=== PATIENT | female | born 1995 | race Two or more races ===

== ENCOUNTER → 2025-06-20 | Outpatient (CLI) | payer MEDICAID, SELFPAY ==
--- NOTE | 2025-06-20 16:16 | XR_ITS ---
Examination: CT pelvis without intravenous contrast. 2-D sagittal and coronal reconstructions. Date and time of exam: June 20, 2025, 1714 hours INDICATIONS: Pelvic and perineal pain beginning 1 year ago CTDI: vol (mGy) : 20.9 DLP: (mGycm) : 693 Technique: Multiple 3 mm axial sections of the pelvis have been obtained with the 64 slice high resolution scanner. 2-D sagittal and coronal reconstructions. Low dose protocols were performed. One or more of the following dose reduction techniques were used; automated exposure control, adjustment of the mA and/or KV according to patient size, use of iterative reconstruction technique. Findings: No uterine mass or adnexal mass No free fluid in the pelvis No common iliac or external iliac or common femoral lymphadenopathy No bowel obstruction Small soft tissue mass in the left groin, 23 mm, axial image 51 The osseous structures are intact IMPRESSION: Soft tissue mass indistinct margins left groin, 23 mm Recommend pelvic sonography and ultrasound soft tissue left groin follow-up
[2025-06-20 16:30] LABS: HCG Qualitative,Urine Negative
== END | disposition home or self-care (01) ==
LOC: CCTX 15:54 → COPL 15:59
PROVIDERS: Registered Nurse Pediatrics; Referring Provider Radiology Diagnostic Radiology; Visit Provider Radiology Diagnostic Radiology
DX: R19.09 Other intra-abdominal and pelvic swelling, mass and lump (principal); Z32.00 Encounter for pregnancy test, result unknown
CPT/HCPCS: 72192; 81025

== ENCOUNTER 2025-07-01 12:09 | Emergency (ER) | payer MEDICAID, SELFPAY ==
[2025-07-01 12:10] VITALS: BMI 53.8
[2025-07-01 12:36] VITALS: BP 146/72; PULSE 77; RESP 18; TEMP 37.1; O2SAT 96
--- NOTE | 2025-07-01 12:39 | XR_ITS ---
Examination: CT pre and post contrast follow-up would confirm this diagnosis, with intravenous contrast. 2-D coronal reconstructions. 2-D sagittal reconstructions. Date and time of exam : July 01 0 25, 1919 hours INDICATION: Right-sided Beginning 5 days ago, thyroid cancer history COMPARISON: June 29, 2023. CTDI: vol (mGy): 20.3 DLP: (mGycm): 557 Technique: 1.25 mm axial sections of the neck of the obtained. Coronal and sagittal reconstructions have been obtained. Intravenous contrast administered 50 cc Isovue-370. Low dose protocols were performed. One or more of the following dose reduction techniques were used; automated exposure control, adjustment of the mA and/or KV according to patient size, use of iterative reconstruction technique. Findings: Maxillary antra demonstrate 8 mm retention cyst on the right Symmetrical nasopharynx oropharynx The right submandibular gland has been removed The larynx appears normal No soft tissue mass in the thyroid bed The epiglottis is poorly visualized No prevertebral soft tissue prominence The right parotid gland is enlarged with inflammatory change IMPRESSION: Findings most consistent with acute right parotitis MRI soft tissue neck follow-up pre and post contrast would confirm this diagnosis
--- NOTE | 2025-07-01 12:40 | PD.EDRME ---
Rapid Medical Screening Exam RME Arrival date/time: 07/01/25 12:09 30-year-old female with a history of thyroid cancer presents to the emergency room with a chief complaint of swelling and tenderness to the right side of her neck x 2 days I have greeted and performed a focused initial assessment of this patient. A comprehensive ED assessment and evaluation of the patient, analysis of all test results, and completion of the medical decision making process will be conducted by additional ED providers. Chief Complaint: Skin/Abscess/Foreign Body Time Seen by Provider: 07/01/25 12:24 Vital signs: Vital Signs Temperature 98.7 F 07/01/25 12:36 Pulse Rate 77 07/01/25 12:36 Respiratory Rate 18 07/01/25 12:36 Blood Pressure 146/72 H 07/01/25 12:36 Pulse Oximetry (%) 96 07/01/25 12:36 Oxygen Delivery Method Room Air 07/01/25 12:36 Vital signs reviewed by provider: Yes
[2025-07-01 14:01] LABS: Basophils # (Auto) 0.1 Thou/mm3 (0.0-0.2); Basophils % (Auto) 1 % (0-2.5); Eosinophils # (Auto) 0.4 Thou/mm3 (0.0-0.5); Eosinophils % (Auto) 4 % (0-10); Hematocrit 39.7 % (36.0-46.0); Hemoglobin 12.8 g/dL (12.0-16.0); Immature Granulocytes Auto 0.04 Thou/mm3 (0.00-0.00); Lymphocytes # (Auto) 1.7 Thou/mm3 (1.0-4.8); Lymphocytes % (Auto) 15 % (10-50); Mean Corpuscular HGB Conc 32.2 g/dl (31.0-37.0); Mean Corpuscular Hemoglobin 26.8 pg (25.0-35.0); Mean Corpuscular Volume 83 fL (80-100); Monocytes # (Auto) 0.7 Thou/mm3 (0.0-0.8); Monocytes % (Auto) 7 % (0-12); Neutrophils # (Auto) 8.1 Thou/mm3 (1.8-7.7); Neutrophils % (Auto) 73 % (37-80); Nucleated Red Blood Cell # 0.00 Thou/mm3 (0.00-0.00); Nucleated Red Blood Cell % 0 /100 WBC (0); Platelet Count 284 Thou/mm3 (140-440); RDW Standard Deviation 45.3 fL (36.4-46.3); Red Blood Count 4.77 Miln/mm3 (4.00-5.20); White Blood Count 11.1 Thou/mm3 (3.6-11.0)
[2025-07-01 14:19] LABS: Alanine Aminotransferase 22 U/L (10-49); Albumin, Serum 4.6 gm/dL (3.5-5.0); Albumin/Globulin Ratio 1.8 (1.2-2.2); Alkaline Phosphatase 78 U/L (46-116); Anion Gap 9 (7-16); Aspartate Amino Transferase 18 U/L (0-34); BUN/Creatinine Ratio 13 Ratio (12-20); Bilirubin,Total 0.4 mg/dL (0.3-1.2); Blood Urea Nitrogen 8 mg/dL (9-23); Calcium 9.1 mg/dL (8.3-10.6); Calcium (Corrected) 9.1 mg/dL (8.5-10.1); Carbon Dioxide 26.1 mMol/L (20.0-31.0); Chloride 107 mMol/L (98-107); Creatinine (Component) 0.6 mg/dL (0.6-1.3); Estimated Creatinine Clearance 187.4 mL/min (>60); Globulin 2.5 gm/dL (2.3-3.5); Glucose 93 mg/dL (74-106); Lipase 29 U/L (12-53); Osmolality,Calculated 281 (275-295); Potassium 3.9 mMol/L (3.4-5.1); Sodium 142 mMol/L (136-145); Total Protein 7.1 gm/dL (5.7-8.2); eGFR > 60 See Note
[2025-07-01 14:27] LABS: Collection Type, Urine Clean Catch
--- NOTE | 2025-07-01 14:33 | EDNOTE_ITS ---
ED General RME/HPI General Chief complaint: Skin/Abscess/Foreign Body Stated complaint: SWELLING TO RT SIDE OF FACE HX OF CA Time Seen by Provider: 07/01/25 12:24 Arrival date/time: 07/01/25 12:09 RME / HPI RME / HPI narrative: 07/01/25 12:09 30-year-old female with a history of thyroid cancer presents to the emergency room with a chief complaint of swelling and tenderness to the right side of her neck x 2 days I have greeted and performed a focused initial assessment of this patient. A comprehensive ED assessment and evaluation of the patient, analysis of all test results, and completion of the medical decision making process will be conducted by additional ED providers. DR. VARGAS MAIN ED EVALUATION 30 year old female with history of thyroid carcinoma s/p bilateral neck dissection ~ 1 year ago presents to the ED for evaluation of right sided neck swelling beginning 4 days ago. Denies any associated pain, difficulty or painful swallowing, dental pain, ear pain, or recent illness. Denies fevers, chills, sweats, cough. Related Data Previous Rx's ?Medication ?Instructions ?Recorded ibuprofen 800 mg tablet 800 mg PO Q8H PRN pain #30 t abs 07/01/25 Allergies Allergy/AdvReac Type Severity Reaction Status Date / Time No Known Allergies Allergy Verified 07/01/25 12:13 Review of Systems Review of Systems Systems Reviewed: All systems reviewed, normal except as documented Past Medical History Past Medical History CARDIAC: Negative Cardiac Disorders RESPIRATORY: Negative Asthma GENITOURINARY: Negative Renal Disease ENDOCRINE: Negative Diabetes Mellitus Type 2 HEMATOLOGIC: Negative Sickle Cell Disease Social History SMOKING STATUS: Never smoker ED Exam Narrative Physical exam: GENERAL APPEARANCE:? alert and oriented x 4, well-developed, well-nourished, no acute distress HEENT: normocephalic, atraumatic NECK: supple, mild edema to the right mandible area, no lymph nodes, no tenderness to palpation, no erythema, FROM LUNGS: no respiratory distress, normal effort HEART: good peripheral perfusion ABDOMEN: non distended EXTREMITIES:? atraumatic NEUROLOGIC: awake; alert and oriented x4; cranial nerves II-XII grossly intact PSYCHIATRIC:? appropriate mood and affect SKIN: warm, dry, normal color; no rashes Course Course Course Narrative: 1800: Patient signed out to Dr. West pending CT soft tissue neck w con. Quality Measures none Orders Category Date Time Status CT Screening NOW Care 07/01/25 12:[address] soft tissue neck w con Stat Exams 07/01/25 12:39 Completed CBC Stat Lab 07/01/25 13:50 Completed CMP [Comprehensive Metabolic Panel] Stat Lab 07/01/25 13:50 Completed HCG Qualitative,Urine Stat Lab 07/01/25 14:06 Completed Lipase Stat Lab 07/01/25 13:50 Completed UA [Urinalysis] Stat Lab 07/01/25 14:06 Completed Urine Culture Stat Lab 07/01/25 14:06 Completed Vital Signs Vital signs: Vital Signs Temperature 98.7 F 07/01/25 12:36 Pulse Rate 77 07/01/25 12:36 Respiratory Rate 18 07/01/25 12:36 Blood Pressure 146/72 H 07/01/25 12:36 Pulse Oximetry (%) 96 07/01/25 12:36 Oxygen Delivery Method Room Air 07/01/25 12:36 Pulse ox is 96% on room air which is adequate. Discharge Plan Plan Patient Disposition: HOME (Self Care) Prescriptions/Referrals Prescriptions/Med Rec: New ibuprofen 800 mg tablet 800 mg PO Q8H PRN (Reason: pain) Qty: 30 0RF Referrals: Gualberto Lezama MD [Primary Care Provider, Family Practice] - In 1 week Problem List Clinical Impression: Acute parotitis Patient/Caregiver Discharge Instructions Education Materials: ED Salivary Gland Infection Additional Instructions: Apply warm compresses 3 times a day for 20 to 30 minutes at a time over the swollen area. Medications as prescribed. Follow-up with your doctor for further treatment and evaluation. Print Language: Polish Stand Alone Forms: [facility]ylee Award Info., Patient Portal Info Letter MDM Narrative Sign Out note: 1800: Patient signed out to Dr. West pending CT soft tissue neck w con. [facility] hospital course (for use when minimal MDM required): Lianne Epstein am scribing for and in the presence of Dr. Vargas. Clinical Information Provided by: patient Medical Records reviewed [facility] Meds/Rx considered, not ordered None Labs/Rad/Tests considered, not ordered None Chronic Illness/Social Conditions which may negatively complicate care or outcome(s)-explain: Cancer (hx of thyroid cancer ) Labs Labs: interpreted by ms Lab(s) Interpretation(s): CBC within normal limits CMP within normal limits Imaging Imaging interpretation: none Medication Administration(s) none Diagnosis Diagnoses ruled out and/or further discussions: Neck/facial swelling
[2025-07-01 15:12] LABS: HCG Qualitative,Urine Negative
[2025-07-01 15:26] LABS: Bilirubin,Urine Negative (Negative); Blood,Urine Trace (Negative); Clarity,Urine Clear (Clear/Hazy); Color,Urine Lt-Yellow (Lt Yel-Yel); Glucose, Urine Negative (Negative); Hyaline Casts,Urine < 1 /hpf (0-1); Ketones,Urine Negative (Negative); Leukocyte Esterase,Urine Negative (Negative); Nitrite,Urine Negative (Negative); PH,Urine 7.0 (5.0-7.0); Protein,Urine Negative (Neg - Trace); RBC,Urine 8 /hpf (0-3); Specific Gravity,Urine 1.022 (1.001-1.035); Squamous Epithelial Cell,Urine 3 /hpf (0-5); Urobilinogen,Urine Negative mg/dL (0.0-1.0); WBC,Urine 1 /hpf (0-5)
--- NOTE | 2025-07-01 18:18 | EDNOTE_ITS ---
Emergency Room Addendum <Eli Lezama - Last Filed: 07/01/25 20:30> Addendum Narrative: 1800: Care assumed from Dr. Vargas, the previous shift emergency physician. Past medical, surgical, social and family history reviewed. Vitals and home medications reviewed. Results and treatment plan discussed. I will assume the care of the patient at this time and will follow the patient, pending CT soft tissue neck. Please refer to the emergency department record for history and examination from initial visit. RADIOLOGY RESULTS: [facility] Report Signed Patient: JACKIE HERNANDEZ. Record#: [id number] Birthdate: 1995 Age/Sex: 30 / F Location: [facility] Attending Dr: Ordering Physician: Refugio Gallego Date of Service: 07/01/25 Procedure(s): CT soft tissue neck w con Accession Number(s): [id number] cc: Refugio Gallego; Gualberto Lezama MD; Delgado Starr MD~ Examination: CT pre and post contrast follow-up would confirm this diagnosis, with intravenous contrast. 2-D coronal reconstructions. 2-D sagittal reconstructions. Date and time of exam : July 01 25, 1919 hours INDICATION: Right-sided Beginning 5 days ago, thyroid cancer history COMPARISON: June 29, 2023. CTDI: vol (mGy): 20.3 DLP: (mGycm): 557 Technique: 1.25 mm axial sections of the neck of the obtained. Coronal and sagittal reconstructions have been obtained. Intravenous contrast administered 50 cc Isovue-370. Low dose protocols were performed. One or more of the following dose reduction techniques were used; automated exposure control, adjustment of the mA and/or KV according to patient size, use of iterative reconstruction technique. Findings: Maxillary antra demonstrate 8 mm retention cyst on the right Symmetrical nasopharynx oropharynx The right submandibular gland has been removed The larynx appears normal No soft tissue mass in the thyroid bed The epiglottis is poorly visualized No prevertebral soft tissue prominence The right parotid gland is enlarged with inflammatory change IMPRESSION: Findings most consistent with acute right parotitis MRI soft tissue neck follow-up pre and post contrast would confirm this diagnosis Dictated By: Delgado Starr MD Signed By: <Electronically signed by Delgado Starr MD in [place]> 07/01/252021 <Sai West, - Last Filed: 07/01/25 21:02> Addendum Narrative: 1800: Care assumed from Dr. Vargas, the previous shift emergency physician. Past medical, surgical, social and family history reviewed. Vitals and home medications reviewed. Results and treatment plan discussed. I will assume the care of the patient at this time and will follow the patient, pending CT soft tissue neck. Please refer to the emergency department record for history and examination from initial visit. RADIOLOGY RESULTS: [facility] Report Signed Patient: JACKIE HERNANDEZ [facility]. Record#: [id number] Birthdate: 1995 Age/Sex: 30 / F Location: [facility] Attending Dr: Ordering Physician: Refugio Gallego Date of Service: 07/01/25 Procedure(s): CT soft tissue neck w con Accession Number(s): [id number] cc: Refugio Gallego; Gualberto Lezama MD; Delgado Starr MD~ Examination: CT pre and post contrast follow-up would confirm this diagnosis, with intravenous contrast. 2-D coronal reconstructions. 2-D sagittal reconstructions. Date and time of exam : July 01, 1919 hours INDICATION: Right-sided Beginning 5 days ago, thyroid cancer history COMPARISON: June 29, 2023. CTDI: vol (mGy): 20.3 DLP: (mGycm): 557 Technique: 1.25 mm axial sections of the neck of the obtained. Coronal and sagittal reconstructions have been obtained. Intravenous contrast administered 50 cc Isovue-370. Low dose protocols were performed. One or more of the following dose reduction techniques were used; automated exposure control, adjustment of the mA and/or KV according to patient size, use of iterative reconstruction technique. Findings: Maxillary antra demonstrate 8 mm retention cyst on the right Symmetrical nasopharynx oropharynx The right submandibular gland has been removed The larynx appears normal No soft tissue mass in the thyroid bed The epiglottis is poorly visualized No prevertebral soft tissue prominence The right parotid gland is enlarged with inflammatory change IMPRESSION: Findings most consistent with acute right parotitis MRI soft tissue neck follow-up pre and post contrast would confirm this diagnosis Dictated By: Delgado Starr MD Signed By: <Electronically signed by Delgado Starr MD in [place]> Case was signed out to me awaiting CT scan of the soft tissue of the neck with IV contrast. That result came back showing acute right sided parotiitis. Patient is to use warm compresses. Ibuprofen as prescribed. Augmentin as prescribed for possible bacterial infection. She does have primary care follow- up. 07/01/252021
[2025-07-01 21:08] VITALS: BP 132/84; PULSE 78; RESP 16; TEMP 36.6; O2SAT 99
== END 2025-07-01 21:08 | disposition home or self-care (01) ==
PROVIDERS: Nurse Practitioner Family; Emergency Provider Emergency Medicine; PCP Family Medicine
DX: K11.21 Acute sialoadenitis (principal)
CPT/HCPCS: 36415; 70491; 80053; 81001; 81025; 83690; 85025; 87077; 87086; 87186; 99282; A4649; Q9967

== ENCOUNTER → 2025-08-14 | Outpatient (CLI) | payer MEDICAID, SELFPAY ==
--- NOTE | 2025-08-14 14:30 | XR_ITS ---
Examination: Pelvic ultrasound, transabdominal, complete Technique: Transabdominal ultrasound of the pelvis performed using grayscale imaging Date and time of exam: August 14 2025, 1436 hours INDICATIONS: Palpable mass in left groin beginning 1 year ago FINDINGS: Uterus 8.4 cm endometrial stripe 0.7 cm Superficial mass pelvis indistinct margins 24 x 19 x 26 mm Right ovary 4.1 cm arterial flow Left ovary 4.5 cm arterial flow IMPRESSION: Left pelvic wall superficial mass with indistinct margins 2.4 x 1.9 x 2.6 cm, clinical correlation advised
== END | disposition home or self-care (01) ==
PROVIDERS: PCP Registered Nurse Pediatrics; Referring Provider Registered Nurse Pediatrics; Visit Provider Registered Nurse Pediatrics
DX: R19.09 Other intra-abdominal and pelvic swelling, mass and lump (principal)
CPT/HCPCS: 76856